=== PATIENT | male | born 1970 | race African-American/Black ===

== ENCOUNTER 2024-10-01 13:48 | Outpatient (CLI) | payer SELFPAY | END 2024-10-01 13:49 | disposition home or self-care (01) | LOC: AMB 10-06 14:29 | PROVIDERS: Visit Provider Family Medicine | DX: S09.90XA Unspecified injury of head, initial encounter (principal); V44.5XXA Car driver injured in collision with heavy transport vehicle or bus in traffic accident, initial encounter; Y92.411 Interstate highway as the place of occurrence of the external cause | CPT/HCPCS: A0425; A0429 ==

== ENCOUNTER 2024-10-01 14:24 | Emergency (ER) | payer SELFPAY ==
[2024-10-01 14:28] VITALS: BP 130/85; PULSE 65; RESP 18; TEMP 36.9; O2SAT 97; BMI 34.3
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
== END 2024-10-01 16:08 | disposition home or self-care (01) ==
LOC: ED 16:00
PROVIDERS: Emergency Provider Emergency Medicine Emergency Medical Services
DX: S39.012A Strain of muscle, fascia and tendon of lower back, initial encounter (principal); V43.52XA Car driver injured in collision with other type car in traffic accident, initial encounter
CPT/HCPCS: 99283; 99284